=== PATIENT | male | born 1945 | race Caucasian/White ===

== ENCOUNTER 2018-01-16 12:30 | Outpatient (CLI) | payer MEDICARE, OTHER | END 2018-01-16 12:31 | disposition home or self-care (01) | LOC: BICRAD 12:30 | PROVIDERS: ATTEND Internal Medicine | DX: J44.9 Chronic obstructive pulmonary disease, unspecified (principal) | CPT/HCPCS: 71046 ==

== ENCOUNTER 2018-01-23 12:19 | Outpatient (CLI) | payer MEDICARE, OTHER ==
--- NOTE | 2018-01-23 12:48 | CT ---
CT OF THE CHEST WIHTOUT CONTRAST PER LOW DOSE CANCER SCREENING PROTOCOL: HISTORY: Low dose screening protocol. The patient has a 50-year smoking history. The patient quit smoking 8 years ago. Mild shortness of breath. TECHNIQUE: Multiple contiguous axial images were obtained in a CT of the chest without contrast per low-dose can cer screening protocol. Coronal formats were performed. FINDINGS: Emphysematous changes are seen in the lungs. No pulmonary nodules are identified. No focal infiltra cem are seen. No pneumothorax or pleural effusion are seen. Mild degenerative changes are seen in the spine. The visualized subdiaphragmatic structures are unre markable. Chest wall soft tissues are unremarkable. The heart is normal size without focal cardiac abnormality. Calcifications are seen in the coronary arteries and aorta. No hilar or mediastinal lymphadenopathy are appreciated on this limited noncontr ast examination. IMPRESSION: Lung RADS category 1 - negative. POS: JAYESH
== END 2018-01-23 12:20 | disposition home or self-care (01) ==
LOC: CT 12:19
PROVIDERS: ATTEND Internal Medicine
DX: Z12.2 Encounter for screening for malignant neoplasm of respiratory organs (principal); Z87.891 Personal history of nicotine dependence
CPT/HCPCS: G0297

== ENCOUNTER 2018-05-24 12:11 | Emergency (ER) | payer MEDICARE, OTHER ==
[2018-05-24 12:51] LABS: #Lymphocytes 2.4 thou/uL (1.20-3.40); #Monocytes 1.1 thou/uL (0.11-0.59); #Neutrophils 6.3 thou/uL (1.40-6.50); %Basophils 0.2 % (0.0-1.0); %Eosinophils 0.4 % (0.0-10.0); %Lymphocytes 24.4 % (21.0-51.0); %Monocytes 11.1 % (0.0-10.0); Hemoglobin 15.2 g/dL (14.0-18.0); Mean Corpuscular HGB CONC 33.7 g/dL (32.0-36.0); Mean Corpuscular Hemoglobin 32.1 pg (27.0-31.0); Mean Corpuscular Volume 95.3 fL (78.0-98.0); Mean Platelet Volume 7.2 fL (7.4-10.4); Platelet Count 242 thou/uL (130-400); RBC Distribution Width 12.3 % (11.5-14.5); Red Blood Cell (RBC) Count 4.74 mill/uL (4.70-6.10); White Blood Cell (WBC) Count 9.9 thou/uL (4.8-10.8)
[2018-05-24 13:12] LABS: ALT (SGPT) 9 U/L (8-55); AST (SGOT) 20 U/L (5-34); Albumin 4.2 g/dL (3.4-4.8); Alkaline Phosphatase 91 U/L (40-150); Anion Gap 14 mmol/L (10-20); BUN (Urea Nitrogen) 15 mg/dL (8.4-25.7); Bilirubin, Total 1.7 mg/dL (0.2-1.2); Calc. Creatinine Clearance 0 mL/min (70-130); Calcium 9.6 mg/dL (7.8-10.44); Carbon Dioxide 24 mmol/L (23-31); Chloride 103 mmol/L (98-107); Estimated GFR-MDRD 59; Globulin 3.3 g/dL (2.4-3.5); Glucose 102 mg/dL (83-110); Lipase 13 U/L (8-78); Potassium 4.5 mmol/L (3.5-5.1); Protein, Total 7.5 g/dL (5.8-8.1); Sodium 136 mmol/L (136-145)
[2018-05-24] MEDS ORDERED: ISOVUE-370 76%-LOCM 1 ML ONE (13:36)
[2018-05-24] MEDS ORDERED: Iopamidol 370 76% 50 ML VIAL FS ONE (13:36)
[2018-05-24 15:04] LABS: Bilirubin Negative (Negative); Blood, Urine Trace (Negative); Clarity CLEAR (Clear); Glucose, Urine (Dipstick) Negative (Negative); Leukocyte Negative (Negative); Nitrite Negative (Negative); Protein, Urine (Dipstick) Negative (Neg-Trace); Urobilinogen 0.2 mg/dL (0.2-1.0); pH, Urine 5.5 (5.0-9.0)
[2018-05-24 15:06] LABS: Bacteria/HPF None Seen HPF (None Seen); Hyaline Casts/LPF 0-3 HYALINE CAST LPF (0-3 Hyaline); RBC/HPF 0-3 HPF (0-3); Squamous Epithelial None Seen HPF (0-3); WBC/HPF None Seen HPF (0-3)
--- NOTE | 2018-05-24 18:48 | CT ---
CT ABDOMEN AND PELVIS WITH IV AND ORAL CONTRAST 05/24/18 HISTORY: Pelvic pain. COMPARISON: 06/16/17. FINDINGS: COPD at the lung bases. Stones within the gallbladder lumen. Calcification throughout the arterial st ructures. Prominent degenerative changes and postoperative changes lumbar spine. Numerous diverticula arise from the colon. Circumferential wall thickening of the upper sigmoid colon with stranding in the surrounding fat. No free fluid or free air. IMPRESSION: Sigmoid diverticulitis. No evidence of complication. Atherosclerosis. Cholelithiasis. POS: TPC
== END 2018-05-24 17:20 | disposition home or self-care (01) ==
LOC: ERS 12:11
DX: K57.32 Diverticulitis of large intestine without perforation or abscess without bleeding (principal); E78.5 Hyperlipidemia, unspecified; Z86.73 Personal history of transient ischemic attack (TIA), and cerebral infarction without residual deficits; J44.9 Chronic obstructive pulmonary disease, unspecified; Z87.891 Personal history of nicotine dependence; Z79.899 Other long term (current) drug therapy; Z79.82 Long term (current) use of aspirin
CPT/HCPCS: 36415; 74177; 80053; 81003; 81015; 83690; 85025

== ENCOUNTER 2018-09-09 07:06 | Emergency (ER) | payer MEDICARE, OTHER | END 2018-09-09 07:42 | disposition home or self-care (01) | LOC: ERS 07:06 | DX: J32.9 Chronic sinusitis, unspecified (principal); E78.5 Hyperlipidemia, unspecified; Z86.73 Personal history of transient ischemic attack (TIA), and cerebral infarction without residual deficits; J44.9 Chronic obstructive pulmonary disease, unspecified; Z87.891 Personal history of nicotine dependence | CPT/HCPCS: 99283 ==

== ENCOUNTER 2019-02-01 08:12 | Outpatient (CLI) | payer MEDICARE, OTHER ==
--- NOTE | 2019-02-01 09:11 | CT ---
CT CHEST WITHOUT CONTRAST: DATE: 02/01/2019. PROVIDED CLINICAL HISTORY: Lung cancer screening, low-dose protocol. FINDINGS: Comparison is made with the study dated 01/23/2018. The heart, pericardium, and great vessels are suboptimally evaluated in the absence of IV contrast ma terial but demonstrate a stable CT appearance, with vascular calcification including coronary calcium redemonstrated. There is no evidence for thoracic lymph node enlargement with limitations due to la ck of IV contrast material. The lungs are free of significant opacity. Subsegmental atelectatic change at the medial right middl e lobe is redemonstrated. Sub 4 mm noncalcified nodular density is present involving the posterior r ight upper lobe. Emphysematous changes are seen at the lung apices to a minimal degree. No pleural fluid, pleural thickening, or pneumothorax apparent. The airway appears patent and of normal caliber . The osseous structures demonstrate no concerning osteoblastic or osteolytic lesions. Thoracic spi ne degenerative changes are seen. IMPRESSION: 1. Lung RADS category 2 - benign findings. Annual screening recommended. 2. Vascular calcification including coronary calcium. POS: TPC
== END 2019-02-01 08:13 | disposition home or self-care (01) ==
LOC: CT 08:12
PROVIDERS: ATTEND Internal Medicine
DX: Z12.2 Encounter for screening for malignant neoplasm of respiratory organs (principal); Z87.891 Personal history of nicotine dependence; I25.10 Atherosclerotic heart disease of native coronary artery without angina pectoris
CPT/HCPCS: G0297

== ENCOUNTER 2019-06-14 12:09 | Outpatient (CLI) | payer MEDICARE, OTHER ==
--- NOTE | 2019-06-14 13:16 | ULT ---
THYROID ULTRASOUND: INDICATION: History of thyroid cyst. COMPARISON: None. FINDINGS: The thyroid isthmus measures 0.47 cm. The right thyroid lobe measures 4.3 x 1.7 x 1.3 cm. The left thyroid lobe measures 4.4 x 1.3 x 1.2 c m. There is a mildly complex mixed-echogenicity nodule seen within the medial lower pole of the righ t thyroid lobe measuring 7 mm. A larger more complex mixed echogenicity well circumscribed solid nod ule is seen involving the lower pole of the right thyroid lobe measuring 1 x 0.8 x 0.9 cm. The lesio n is predominantly hypoechoic but is well circumscribed. There is a small echogenic solid nodule seen within the posterior left mid thyroid lobe measuring 4 m m. Small cystic lesions are seen within the lower pole of the left thyroid gland measuring up to 4 m m. IMPRESSION: 1. Multinodular goiter. 2. The largest most complex solid lesion is seen within the lower pole of the right thyroid lobe jennifer suring 1.0 x 0.8 x 0.9 cm. The characteristics of this lesion are consistent with a TIRADS 4 lesion. Would recommend a followup examination in 1 year to document stability. 3. No followup is recommended for the remaining thyroid nodule. POS: TPC
== END 2019-06-14 12:10 | disposition home or self-care (01) ==
LOC: BICULT 12:09
PROVIDERS: ATTEND Internal Medicine
DX: E04.2 Nontoxic multinodular goiter (principal); E07.89 Other specified disorders of thyroid
CPT/HCPCS: 76536

== ENCOUNTER 2019-12-24 16:02 | Outpatient (CLI) | payer MEDICARE, OTHER ==
--- NOTE | 2019-12-24 16:17 | RAD ---
EXAM: CHEST TWO VIEWS 12/24/2019 4:13 PM HISTORY: History of cough COMPARISON: January 16, 2018 FINDINGS: Lungs: The chronic prominent interstitial fibrotic change and mild hyperinflation likely related to underlying COPD is stable appearing. No acute airspace opacity, pleural effusion or pneumothorax is evident. Heart: Normal in size and contour. Pulmonary Vessels: Normal. Costophrenic Angles: Clear. Pneumothorax: None. Osseous Structures: There are healed left sixth through seventh rib fractures. No acute fracture or subluxation demonstrated. Additional Findings: None. IMPRESSION: No significant acute intrathoracic disease.
== END 2019-12-24 16:03 | disposition home or self-care (01) ==
LOC: BICRAD 16:02
PROVIDERS: ATTEND Internal Medicine
DX: R05 Cough (principal)
CPT/HCPCS: 71046; 87070

== ENCOUNTER 2020-04-08 10:37 | Outpatient (CLI) | payer MEDICARE, OTHER ==
--- NOTE | 2020-04-08 11:21 | CT ---
Exam: Noncontrast chest CT; CT lung scan low dose HISTORY:History of smoking for 50 years, 1 pack a day. Quit 10 years ago. Nicotine dependence in the past. COPD and shortness of breath. COMPARISON: 02/01/2019 TECHNIQUE: Low-dose screening lung CT is performed utilizing institutional prot ocol FINDINGS: Lung screening specific (LUNG-RADS): Scattered but stable emphysematous changes. Stable patchy ground glass opacities. Stable 4 mm solid nodule in the right upper lobe. Stable 5 mm pleural-based solid nodule in the middle lobe. Stable solid 5 mm nodule in the left upper lobe. Stable solid 5 mm nodule in the left lower lobe. Potential significant incidentals (lung RADS category S): None Pulmonary incidentals:Stable emphysema and scarring. Other incidentals: Atherosclerosis, coronary disease is redemonstrated. IMPRESSION: 1. Lung RADS 2-benign findings. 2. Lung Rask category S: Negative. No new or unknown potential significant incidental findings requir ing urgent additional evaluation 3. Other incidentals as above. Recommendation: Continued routine annual low-dose lung screening CT. Follow-up in one year.
== END 2020-04-08 10:38 | disposition home or self-care (01) ==
LOC: BICCT 10:37
PROVIDERS: ATTEND Internal Medicine
DX: Z12.2 Encounter for screening for malignant neoplasm of respiratory organs (principal); R73.01 Impaired fasting glucose; J43.9 Emphysema, unspecified; J98.4 Other disorders of lung; I25.10 Atherosclerotic heart disease of native coronary artery without angina pectoris; Z87.891 Personal history of nicotine dependence
CPT/HCPCS: 83036; G0297; 36415

== ENCOUNTER 2020-09-08 15:11 | Outpatient (CLI) | payer MEDICARE, OTHER ==
--- NOTE | 2020-09-08 17:03 | ULT ---
THYROID ULTRASOUND: Indications: Follow up nodule Comparison: Thyroid ultrasound exam, 06-14-19. FINDINGS: Both lobes of the thyroid are homogenous. Right lobe measures 3.7 x 1.8 x 1.5 cm. Left lobe measures 4.9 x 1.4 x 1.5 cm. The complex hypoechoic partially cystic nodule in the inferior right lobe is stable and measures 1.1 x 1.1 x 0.6 cm today. Tiny hypoechoic nodule in the upper right lobe measures 3 x 7 x 8 mm. 2-3 tiny hypoechoic nodules in the left lobe measuring 2-3 mm appear stable. IMPRESSION: 1. Stable thyroid ultrasound. The larger nodule in the inferior right lobe which is partially cystic appears stable. Recommend continued annual surveillance. POS: OFF
== END 2020-09-08 15:12 | disposition home or self-care (01) ==
LOC: BICULT 15:11
PROVIDERS: ATTEND Otolaryngology Plastic Surgery within the Head & Neck
DX: E04.1 Nontoxic single thyroid nodule (principal)
CPT/HCPCS: 76536

== ENCOUNTER 2021-02-07 14:37 | Emergency (ER) | payer MEDICARE, OTHER ==
[~2021-02-07 14:37] MED LIST: Iopamidol-370 76% 500 ML 1 ML ONE
[2021-02-07 14:56] LABS: #Eosinphils 0.1 thou/uL (0.0-0.7); #Monocytes 0.8 thou/uL (0.11-0.59); #Neutrophils 5.8 thou/uL (1.40-6.50); %Basophils 0.3 % (0.0-1.0); %Eosinophils 1.3 % (0.0-10.0); %Lymphocytes 23.1 % (21.0-51.0); %Monocytes 9.2 % (0.0-10.0); %Neutrophils 66.2 % (42.0-75.0); Hemoglobin 15.4 g/dL (14.0-18.0); Mean Corpuscular HGB CONC 33.8 g/dL (32.0-36.0); Mean Corpuscular Hemoglobin 31.9 pg (27.0-31.0); Mean Corpuscular Volume 94.3 fL (78.0-98.0); Mean Platelet Volume 7.9 fL (7.4-10.4); Platelet Count 282 thou/uL (130-400); RBC Distribution Width 12.2 % (11.5-14.5); Red Blood Cell (RBC) Count 4.83 mill/uL (4.70-6.10); White Blood Cell (WBC) Count 8.8 thou/uL (4.8-10.8)
[2021-02-07 15:03] LABS: PTT 43.9 sec (22.9-36.1); Prothrombin Time 13.8 sec (12.0-14.7)
[2021-02-07 15:12] LABS: ALT (SGPT) Less than 7 U/L (8-55); AST (SGOT) 18 U/L (5-34); Albumin 4.1 g/dL (3.4-4.8); Alkaline Phosphatase 84 U/L (40-110); Anion Gap 12 mmol/L (10-20); BUN (Urea Nitrogen) 13 mg/dL (8.4-25.7); Bilirubin, Total 0.7 mg/dL (0.2-1.2); CK (CPK) 106 U/L (30-200); Calc. Creatinine Clearance 0 mL/min (70-130); Calcium 8.8 mg/dL (7.8-10.44); Carbon Dioxide 23 mmol/L (23-31); Chloride 108 mmol/L (98-107); Globulin 3.6 g/dL (2.4-3.5); Glucose 99 mg/dL (83-110); Potassium 4.1 mmol/L (3.5-5.1); Protein, Total 7.7 g/dL (5.8-8.1); Sodium 139 mmol/L (136-145)
[2021-02-07 15:35] LABS: INR-International Normal Ratio 1.1; PTT 44.6 sec (22.9-36.1); Prothrombin Time 14.1 sec (12.0-14.7)
== END 2021-02-07 17:41 | disposition home or self-care (01) ==
LOC: ERS 14:37
DX: R20.2 Paresthesia of skin (principal); E78.5 Hyperlipidemia, unspecified; E78.00 Pure hypercholesterolemia, unspecified; I10 Essential (primary) hypertension; J44.9 Chronic obstructive pulmonary disease, unspecified; Z86.73 Personal history of transient ischemic attack (TIA), and cerebral infarction without residual deficits; Z87.891 Personal history of nicotine dependence
CPT/HCPCS: 36415; 70496; 70498; 80053; 82550; 84484; 85025; 85610; 85730; 93005; Q9967

== ENCOUNTER 2021-02-16 09:55 | Outpatient (CLI) | payer MEDICARE, OTHER ==
[2021-02-16 18:29] LABS: SARS-CoV-2 PCR by NAA Not Detected (NotDetected)
== END 2021-02-16 09:56 | disposition home or self-care (01) ==
LOC: LABBT 09:55
PROVIDERS: ATTEND Internal Medicine
DX: Z01.812 Encounter for preprocedural laboratory examination (principal); Z20.822 Contact with and (suspected) exposure to COVID-19
CPT/HCPCS: U0003; U0005; 87635

== ENCOUNTER 2021-02-18 11:08 | Outpatient (CLI) | payer MEDICARE, OTHER | END 2021-02-18 11:09 | disposition home or self-care (01) | LOC: BICRAD 11:08 | PROVIDERS: ATTEND Internal Medicine | DX: M51.36 Other intervertebral disc degeneration, lumbar region (principal); M46.1 Sacroiliitis, not elsewhere classified; M47.816 Spondylosis without myelopathy or radiculopathy, lumbar region; Z98.890 Other specified postprocedural states | CPT/HCPCS: 72100; 72202 ==

== ENCOUNTER 2021-02-20 10:08 | Day surgery (SDC) | payer MEDICARE, OTHER ==
[2021-02-19 09:59] VITALS: BMI 25.0
[2021-02-20] MEDS ORDERED: Fentanyl 100 MCG/2 ML VIAL ONE (11:49)
[2021-02-20] MEDS ORDERED: Midazolam HCl 2 mg/2 ml Vial ONE (11:53)
== END 2021-02-20 12:31 | disposition home or self-care (01) ==
LOC: MRI 10:08
PROVIDERS: ATTEND Internal Medicine
DX: R20.2 Paresthesia of skin (principal); E78.5 Hyperlipidemia, unspecified; J44.9 Chronic obstructive pulmonary disease, unspecified; K21.9 Gastro-esophageal reflux disease without esophagitis; C61 Malignant neoplasm of prostate; I73.9 Peripheral vascular disease, unspecified; N40.0 Benign prostatic hyperplasia without lower urinary tract symptoms; Z86.73 Personal history of transient ischemic attack (TIA), and cerebral infarction without residual deficits; Z87.891 Personal history of nicotine dependence; Z79.02 Long term (current) use of antithrombotics/antiplatelets; Z79.82 Long term (current) use of aspirin; Z79.899 Other long term (current) drug therapy; Z88.1 Allergy status to other antibiotic agents; Z88.8 Allergy status to other drugs, medicaments and biological substances
CPT/HCPCS: 93005; 93010; J2250; J3010

== ENCOUNTER 2021-03-04 10:53 | Outpatient (CLI) | payer MEDICARE, OTHER | END 2021-03-04 10:54 | disposition home or self-care (01) | LOC: BICRAD 10:53 | PROVIDERS: ATTEND Internal Medicine Critical Care Medicine | DX: R06.09 Other forms of dyspnea (principal) | CPT/HCPCS: 71046 ==

== ENCOUNTER 2021-04-16 14:11 | Outpatient (CLI) | payer MEDICARE, OTHER | END 2021-04-16 14:12 | disposition home or self-care (01) | LOC: BICCT 14:11 | PROVIDERS: ATTEND Internal Medicine | DX: Z12.2 Encounter for screening for malignant neoplasm of respiratory organs (principal); Z87.891 Personal history of nicotine dependence; K80.20 Calculus of gallbladder without cholecystitis without obstruction | CPT/HCPCS: 71271 ==

== ENCOUNTER 2021-08-31 14:19 | Outpatient (CLI) | payer MEDICARE, OTHER | END 2021-08-31 14:20 | disposition home or self-care (01) | LOC: BICULT 14:19 | PROVIDERS: ATTEND Internal Medicine | DX: E04.1 Nontoxic single thyroid nodule (principal) | CPT/HCPCS: 76536 ==

== ENCOUNTER 2021-09-21 16:12 | Emergency (ER) | payer MEDICARE, OTHER | END 2021-09-21 18:52 | disposition home or self-care (01) | LOC: ERS 16:12 | DX: S51.001A Unspecified open wound of right elbow, initial encounter (principal); I10 Essential (primary) hypertension; E78.5 Hyperlipidemia, unspecified; E78.00 Pure hypercholesterolemia, unspecified; J44.9 Chronic obstructive pulmonary disease, unspecified; Z87.891 Personal history of nicotine dependence; Z79.02 Long term (current) use of antithrombotics/antiplatelets; Z79.899 Other long term (current) drug therapy; W23.0XXA Caught, crushed, jammed, or pinched between moving objects, initial encounter | CPT/HCPCS: 12001 ==

== ENCOUNTER 2022-04-20 09:23 | Outpatient (CLI) | payer MEDICARE, OTHER | END 2022-04-20 09:24 | disposition home or self-care (01) | LOC: BICCT 09:23 | PROVIDERS: ATTEND Internal Medicine | DX: Z12.2 Encounter for screening for malignant neoplasm of respiratory organs (principal); Z87.891 Personal history of nicotine dependence; I25.10 Atherosclerotic heart disease of native coronary artery without angina pectoris; J43.2 Centrilobular emphysema | CPT/HCPCS: 71271 ==

== ENCOUNTER 2022-04-29 10:19 | Outpatient (CLI) | payer MEDICARE, OTHER | END 2022-04-29 10:20 | disposition home or self-care (01) | LOC: BICRAD 10:19 | PROVIDERS: ATTEND Internal Medicine | DX: M25.552 Pain in left hip (principal); M53.3 Sacrococcygeal disorders, not elsewhere classified | CPT/HCPCS: 72202 ==

== ENCOUNTER 2022-05-20 12:15 | Outpatient (CLI) | payer MEDICARE, OTHER | END 2022-05-20 12:16 | disposition home or self-care (01) | LOC: BICULT 12:15 | PROVIDERS: ATTEND Internal Medicine | DX: N18.31 Chronic kidney disease, stage 3a (principal); N28.1 Cyst of kidney, acquired; N32.89 Other specified disorders of bladder | CPT/HCPCS: 76770 ==

== ENCOUNTER 2022-07-05 15:38 | Outpatient (CLI) | payer MEDICARE, OTHER | END 2022-07-05 15:39 | disposition home or self-care (01) | LOC: BICRAD 15:38 | PROVIDERS: ATTEND Internal Medicine | DX: M54.50 Low back pain, unspecified (principal); M81.0 Age-related osteoporosis without current pathological fracture; M51.36 Other intervertebral disc degeneration, lumbar region; M51.37 Other intervertebral disc degeneration, lumbosacral region; Z96.7 Presence of other bone and tendon implants | CPT/HCPCS: 72100 ==

== ENCOUNTER 2022-08-26 14:32 | Outpatient (CLI) | payer MEDICARE, OTHER | END 2022-08-26 14:33 | disposition home or self-care (01) | LOC: BICMAMMO 14:32 | PROVIDERS: ATTEND Internal Medicine | DX: N63.11 Unspecified lump in the right breast, upper outer quadrant (principal) | CPT/HCPCS: 76642; 77066; G0279 ==

== ENCOUNTER 2023-05-13 15:32 | Outpatient (CLI) | payer MEDICARE, OTHER | END 2023-05-13 15:33 | disposition home or self-care (01) | LOC: BICCT 15:32 | PROVIDERS: ATTEND Internal Medicine | DX: Z12.2 Encounter for screening for malignant neoplasm of respiratory organs (principal); Z87.891 Personal history of nicotine dependence | CPT/HCPCS: 71271 ==

== ENCOUNTER 2023-08-11 07:21 | Emergency (ER) | payer MEDICARE, OTHER ==
[2023-08-11] MEDS ORDERED: Oxymetazoline HCl 0.05% (30 ML BOT) ONE (07:36)
[2023-08-11 07:44] LABS: #Basophils 0.1 thou/uL (0.0-0.2); #Monocytes 0.9 thou/uL (0.11-0.59); #Neutrophils 4.8 thou/uL (1.40-6.50); %Basophils 0.6 % (0.0-1.0); %Lymphocytes 26.1 % (21.0-51.0); %Neutrophils 61.8 % (42.0-75.0); Hematocrit 40.5 % (42.0-52.0); Hemoglobin 13.7 g/dL (14.0-18.0); Mean Corpuscular HGB CONC 33.8 g/dL (32.0-36.0); Mean Corpuscular Hemoglobin 32.7 pg (27.0-31.0); Mean Corpuscular Volume 96.7 fl (78.0-98.0); Mean Platelet Volume 10.6 fL (7.4-10.4); Platelet Count 308 10x3/uL (130-400); RBC Distribution Width 13.4 % (11.5-14.5); Red Blood Cell (RBC) Count 4.19 mill/uL (4.70-6.10); White Blood Cell (WBC) Count 7.7 10x3/uL (4.8-10.8)
[2023-08-11 08:00] LABS: INR-International Normal Ratio 1.2; PTT 46.4 sec (22.9-36.1); Prothrombin Time 15.6 sec (12.0-14.7)
== END 2023-08-11 08:42 | disposition home or self-care (01) ==
LOC: ERS 07:21
DX: R04.0 Epistaxis (principal); I10 Essential (primary) hypertension; E78.00 Pure hypercholesterolemia, unspecified; Z87.891 Personal history of nicotine dependence
CPT/HCPCS: 36415; 85025; 85610; 85730; 99283

== ENCOUNTER 2023-10-26 10:30 | Outpatient (CLI) | payer MEDICARE, OTHER | END 2023-10-26 10:31 | disposition home or self-care (01) | LOC: BICULT 10:30 | PROVIDERS: ATTEND Otolaryngology Plastic Surgery within the Head & Neck | DX: E04.2 Nontoxic multinodular goiter (principal) | CPT/HCPCS: 76536 ==

== ENCOUNTER 2023-11-25 09:09 | Outpatient (CLI) | payer MEDICARE, OTHER | END 2023-11-25 09:10 | disposition home or self-care (01) | LOC: BICRAD 09:09 | PROVIDERS: ATTEND Internal Medicine | DX: R05.3 Chronic cough (principal); R91.8 Other nonspecific abnormal finding of lung field; M47.814 Spondylosis without myelopathy or radiculopathy, thoracic region; Z98.890 Other specified postprocedural states | CPT/HCPCS: 36415; 71046; 80053; 82728; 83540; 83550; 84153; 84443; 85025 ==

== ENCOUNTER 2024-02-20 11:19 | Outpatient (CLI) | payer MEDICARE, OTHER | END 2024-02-20 11:20 | disposition home or self-care (01) | LOC: RAD 11:19 | PROVIDERS: ATTEND Internal Medicine Critical Care Medicine | DX: R06.00 Dyspnea, unspecified (principal) | CPT/HCPCS: 71046 ==

== ENCOUNTER 2024-09-11 11:03 | Emergency (ER) | payer MEDICARE, OTHER ==
[2024-09-11] MEDS ORDERED: Boostrix 0.5 ML (Tdap) VIAL (>/=7 yrs of age) ONE (12:55)
[2024-09-11] MEDS ORDERED: Lidocaine 1% (PF) 30 ML VIAL ONE (13:42)
[2024-09-11] MEDS ORDERED: Bacitracin 1 PK ONE (14:17)
== END 2024-09-11 14:22 | disposition home or self-care (01) ==
LOC: ERS 11:03
DX: S61.211A Laceration without foreign body of left index finger without damage to nail, initial encounter (principal); Z23 Encounter for immunization; I10 Essential (primary) hypertension; J44.9 Chronic obstructive pulmonary disease, unspecified; Z87.891 Personal history of nicotine dependence; W26.8XXA Contact with other sharp object(s), not elsewhere classified, initial encounter
CPT/HCPCS: 12001; 90471; 90715

== ENCOUNTER 2024-12-01 20:10 | Emergency (ER) | payer MEDICARE, OTHER ==
[2024-12-01 21:35] LABS: #Basophils 0.08 10x3/uL (0.0-0.2); #Eosinophils Less than 0.03 10x3/uL (0.0-0.7); %Lymphocytes 19.1 % (21.0-51.0); %Monocytes 10.5 % (0.0-10.0); %Neutrophils 68.9 % (42.0-75.0); Hematocrit 40.1 % (42.0-52.0); Mean Corpuscular HGB CONC 34.9 g/dL (32.0-36.0); Mean Corpuscular Hemoglobin 36.5 pg (27.0-31.0); Mean Corpuscular Volume 104.4 fL (78.0-98.0); Mean Platelet Volume 9.3 fL (7.4-10.4); Platelet Count 370 10x3/uL (130-400); RBC Distribution Width 15.7 % (11.5-14.5); Red Blood Cell (RBC) Count 3.84 mill/uL (4.70-6.10)
[2024-12-01 21:52] LABS: INR-International Normal Ratio 1.2; Prothrombin Time 14.8 sec (12.0-14.7)
[2024-12-01 21:53] LABS: ALT (SGPT) Less than 7 U/L (Less than 45); AST (SGOT) 45 U/L (11-34); Alkaline Phosphatase 83 U/L (40-110); Anion Gap 12 mmol/L (10-20); BUN (Urea Nitrogen) 18 mg/dL (8.4-25.7); Bilirubin, Total 0.7 mg/dL (0.3-1.2); Calc. Creatinine Clearance 0 mL/min (70-130); Calcium 9.2 mg/dL (7.8-10.44); Carbon Dioxide 26 mmol/L (23-31); Chloride 105 mmol/L (98-107); Estimated GFR 61; Globulin 3.7 g/dL (2.4-3.5); Glucose 101 mg/dL (83-110); Potassium 4.2 mmol/L (3.5-5.1); Protein, Total 7.7 g/dL (5.8-8.1); Sodium 139 mmol/L (136-145)
[2024-12-01 21:57] LABS: Troponin I 0.016 ng/mL (< 0.028)
== END 2024-12-01 23:22 | disposition home or self-care (01) ==
LOC: ERS 20:10
DX: R42 Dizziness and giddiness (principal); J44.9 Chronic obstructive pulmonary disease, unspecified; I10 Essential (primary) hypertension; R55 Syncope and collapse; Z86.73 Personal history of transient ischemic attack (TIA), and cerebral infarction without residual deficits
CPT/HCPCS: 36415; 70450; 71045; 80053; 84484; 85025; 85610; 85730; 93005